=== PATIENT | female | born 1965 | race Caucasian/White ===

== ENCOUNTER 2016-10-05 11:30 | Outpatient (RCR) | payer OTHER | END 2016-10-07 | disposition still patient (30) | LOC: WSPT | DX: M25.511 Pain in right shoulder (principal) | CPT/HCPCS: G8984-GP; G8985-GP; G8986-GP ==

== ENCOUNTER 2016-10-25 14:30 | Outpatient (RCR) | payer OTHER | END 2016-10-25 14:31 | LOC: WSPT 14:30 | DX: M25.511 Pain in right shoulder (principal) ==